=== PATIENT | female | born 1945 | race Caucasian/White ===

== ENCOUNTER 2023-05-16 11:00 | Outpatient (CLI) | payer MEDICARE, OTHER ==
[2023-05-27] MEDS ORDERED: NAPR220T67 PO (06:07)
== END 2023-05-16 23:59 ==
LOC: RAD 11:00
PROVIDERS: ATTEND Internal Medicine Infectious Disease
DX: K65.1 Peritoneal abscess (principal); K80.20 Calculus of gallbladder without cholecystitis without obstruction; K76.89 Other specified diseases of liver; J90 Pleural effusion, not elsewhere classified; Z98.890 Other specified postprocedural states
CPT/HCPCS: 74176

== ENCOUNTER 2023-05-26 08:57 | Day surgery (SDC) | payer MEDICARE, OTHER ==
[2023-05-26] VITALS (20 sets, daily range): BP systolic 114–163; BP diastolic 51–72; PULSE 55–61; RESP 8–20; O2SAT 97–100
[2023-05-26] MEDS ORDERED: LIDOcaine 1% 30ml preserv. free vial ONE (10:20)
[2023-05-26] MEDS ORDERED: midazolam 1 mg/ML 2ml injection ONE (10:27)
[2023-05-26] MEDS ORDERED: fentaNYL/PF 50MCG/1 ML 2ML syringe ONE (10:27)
[2023-05-26] MEDS ORDERED: LIDOcaine 1% (10mg/ml) 2ml vial ONE (10:27)
[2023-05-26 10:33] LABS: BASOPHILS % (AUTO) 0.2 % (0-1); EOSINOPHILS % (AUTO) 0.2 % (0-6); HEMATOCRIT 28.9 % (35.0-45.0); HEMOGLOBIN 9.3 g/dl (12.0-16.0); LYMPHOCYTES # (AUTO) 1.5 X10'3 (1.1-4.8); LYMPHOCYTES % (AUTO) 17.7 % (21-51); MEAN CORPUSCULAR HEMOGLOBIN 26.9 PG (27.0-31.0); MEAN CORPUSCULAR HGB CONC 32.1 g/dL (33.0-36.5); MEAN PLATELET VOLUME 7.2 FL (7.4-10.4); MONOCYTES # (AUTO) 0.8 X10'3 (0-0.9); MONOCYTES % (AUTO) 9.7 % (2-12); NEUTROPHILS # (AUTO) 5.9 X10'3 (1.8-7.7); NEUTROPHILS % (AUTO) 72.2 % (42-75); PLATELET COUNT 469 X10'3 (140-440); RED BLOOD COUNT 3.44 X10'6 (4.20-5.60); RED CELL DISTRIBUTION WIDTH 17.8 % (11.5-14.5); WHITE BLOOD COUNT 8.2 X10'3 (4.5-11.0)
[2023-05-26 10:37] LABS: ALBUMIN 1.9 G/DL (3.4-5.0); ANION GAP 8 (8-16); BLOOD UREA NITROGEN 64 MG/DL (7-18); BUN/CREATININE RATIO 22.5 (10.0-20.0); CALCIUM 9.1 MG/DL (8.5-10.1); CHLORIDE 96 MMOL/L (99-107); CREATININE 2.84 MG/DL (0.40-0.90); GLUCOSE 112 MG/DL (70-104); POTASSIUM 3.8 MMOL/L (3.5-5.1); SODIUM 131 MMOL/L (135-145); TOTAL CARBON DIOXIDE 26.8 MMOL/L (24-32); eGFR 16 ML/MIN
[2023-05-26] MEDS ORDERED: diphenhydrAMINE 50 mg/ml inj ONE (10:58)
[2023-05-27] MEDS ORDERED: NAPR220T67 PO (06:07)
== END 2023-05-26 13:12 ==
LOC: PAS 08:57
PROVIDERS: ATTEND Radiology Vascular & Interventional Radiology
DX: K68.11 Postprocedural retroperitoneal abscess (principal); Z91.048 Other nonmedicinal substance allergy status; Z91.018 Allergy to other foods; Z88.8 Allergy status to other drugs, medicaments and biological substances; Z88.5 Allergy status to narcotic agent; Z93.0 Tracheostomy status; Z99.11 Dependence on respirator [ventilator] status
CPT/HCPCS: 36415; 49406; 80048; 85025; 87070; 94002; 94760; 94799; C1729; C1769; J1200; J2250; J3010; J3490; J7030; Z7512; A4421; A4615; A6258

== ENCOUNTER → 2023-06-17 | Day surgery (SDC) | payer MEDICARE | END | disposition home or self-care (01) | LOC: PAS 09:00 | PROVIDERS: ATTEND Radiology Vascular & Interventional Radiology | DX: Z49.01 Encounter for fitting and adjustment of extracorporeal dialysis catheter (principal); J96.91 Respiratory failure, unspecified with hypoxia; Z91.048 Other nonmedicinal substance allergy status; Z91.018 Allergy to other foods; Z88.8 Allergy status to other drugs, medicaments and biological substances; Z88.5 Allergy status to narcotic agent; Z79.899 Other long term (current) drug therapy | CPT/HCPCS: 36589; A6258; A6449 ==